=== PATIENT | female | born 2000 | race Two or more races ===

== ENCOUNTER 2024-02-23 14:43 | Emergency (ER) | payer MEDICAID, SELFPAY ==
[2024-02-23 14:44] VITALS: BMI 27.1
[2024-02-23 15:22] VITALS: BP 132/88; PULSE 99; RESP 19; TEMP 36.9; O2SAT 97
--- NOTE | 2024-02-23 16:29 | XR_ITS ---
Examination: Fingers, right hand fourth digit 3 views Technique: AP, oblique, lateral views right hand fourth digit 3 views. Exam date and time: February 23, 2024 1632 hrs. Indications: Patient fell 2 weeks ago with injury to the fourth digit, fourth digit pain. Findings: No acute fracture No dislocation Mild dorsiflexion at the proximal interphalangeal joint No opaque foreign body Impression: No acute fracture
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
== END 2024-02-23 17:34 | disposition home or self-care (01) ==
PROVIDERS: Emergency Provider Emergency Medicine; PCP Family Medicine
DX: M20.011 Mallet finger of right finger(s) (principal)
CPT/HCPCS: 73140; 99283

== ENCOUNTER 2024-03-13 19:53 | Emergency (ER) | payer MEDICAID, SELFPAY ==
[2024-03-13 20:02] VITALS: BP 120/69; PULSE 116; RESP 17; TEMP 37.3; O2SAT 98
[2024-03-13 20:03] VITALS: BMI 27.4
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
== END 2024-03-13 20:30 ==
LOC: SERX 20:44
PROVIDERS: Emergency Provider Emergency Medicine; PCP Family Medicine
DX: Z02.89 Encounter for other administrative examinations (principal)
CPT/HCPCS: 99281